=== PATIENT | female | born 1985 | race Caucasian/White ===

== ENCOUNTER 2018-03-29 02:44 | Outpatient (CLI) | payer MEDICAID ==
[2018-03-29 03:46] LABS: Bacteria,Urine 1+ /HPF (Negative); Bilirubin,Urine NEG (Negative); Blood,Urine SM (Negative); Color,Urine Yellow (Yellow); Mucus,Urine FEW /HPF; Protein,Urine <15 mg/dL mg/dL (Negative); Urobilinogen,Urine < 2.0 mg/dL (<2.0)
[2018-03-29 03:54] VITALS: BP 114/69
[2018-03-29] MEDS ORDERED: ZOFRAN ODT PO ONE (03:59)
== END 2018-03-29 04:08 | disposition home or self-care (01) ==
LOC: TRG 02:44
PROVIDERS: ATTEND Obstetrics & Gynecology
DX: O47.03 False labor before 37 completed weeks of gestation, third trimester (principal); O13.3 Gestational [pregnancy-induced] hypertension without significant proteinuria, third trimester; O99.513 Diseases of the respiratory system complicating pregnancy, third trimester; O24.419 Gestational diabetes mellitus in pregnancy, unspecified control; R06.02 Shortness of breath; Z88.5 Allergy status to narcotic agent; Z3A.37 37 weeks gestation of pregnancy
CPT/HCPCS: 59025; 81001; 82962; Q0162

== ENCOUNTER 2018-04-06 08:55 | Inpatient (IN) | payer MEDICAID ==
--- NOTE | 2018-04-06 09:35 | History and Physical Report ---
History of Present Illness Date of examination: 04/06/18 Date of admission: 04/06/18 08:55 Chief complaint: SIUP at 38 weeks and 2 days gestation with macrosomia. Undesired fertility, wants tubal ligation. History of present illness: Patient is a 32 year old , LMP 07/12/17, EDC 04/18/18 who is at 38 weeks and 2 days gestation who was admitted for primary C/section for macrosomia. She has pre-gestational diabetes and has been co-managed with [facility]. her glucose has been fairly controlled on metformin. Her most recent ultrasound showed >100th percentile growth. Patient has a history of shoulder dystocia in her last delivery. She denies any contractions, fluid leakage or bleeding. She reports good movement. tracing is CAT1. She also wants tubal ligation. Past History Past Medical History: diabetes, other (obesity) Past Surgical History: no surgical history Family/Genetic History: none Social history: no significant social history - Obstetrical History Expected Date of Delivery: 04/18/18 Actual Gestation: 38 Week(s) 2 Day(s) : 7 Para: 3 Spontaneous Abortions: 3 Number of Living Children: 3 Medications and Allergies Allergies Allergy/AdvReac Type Severity Reaction Status Date / Time oxycodone AdvReac Dizziness Verified 03/29/18 04:59 Home Medications Medication Instructions Recorded Confirmed Last Taken Type Vits96/Iron Fum/Folic 1 tab PO DAILY 04/11/13 03/29/18 03/28/18 History [ Tablet] metFORMIN [Glucophage] 500 mg PO BID 03/29/18 03/29/18 03/28/18 20:00 History Active Meds: Active Medications Citric Acid/Sodium Citrate (Bicitra) 30 ml PO ONCE ONE Stop: 04/06/18 09:04 Famotidine (Pepcid) 20 mg IV ONCE ONE Stop: 04/06/18 09:04 Cefazolin Sodium (Ancef/Sterile Water 2 Gm/20 Ml) 2 gm in 20 mls @ 80 mls/hr IV PREOP NR; Protocol Lactated Ringer's (Lactated Ringers) 1,000 mls @ 2,250 mls/hr IV PREOP ABHILASH Stop: 04/07/18 10:27 Oxytocin/Sodium Chloride (Pitocin/Ns 20 Unit/1000ml Drip) 20 units in 1,000 mls @ 0 mls/hr IV TITR ABHILASH Metoclopramide HCl (Reglan) 10 mg IV ONCE ONE Stop: 04/06/18 09:04 - Vital Signs Vital signs: Vital Signs Pulse BP 85 131/76 04/06/18 09:17 04/06/18 09:17 Temp Pulse Resp BP Pulse Ox 85 131/76 04/06/18 09:17 04/06/18 09:17 - Physical Exam Cardiovascular: Normal S1, Normal S2 Lungs: Positive: Clear to auscultation Vulva: both: normal Deep Tendon Reflex Grade: Normal +2 - Obstetrical FHR: category 1 Cervical Dilatation: 0 Cervical Effacement Percentage: 0 station: -2 Uterine Contraction Pattern: Absent Results Result Diagrams: 04/06/18 09:00 All other labs normal. Assessment and Plan - Patient Problems (1) 38 weeks gestation of Current Visit: Yes Status: Acute (2) Diabetes Current Visit: Yes Status: Acute Qualifiers: Diabetes mellitus type: type 2 (3) macrosomia Current Visit: Yes Status: Acute Plan to address problem: Patient has a history of shoulder dystocia during her last delivery. Baby was 9 lbs 3 oz. Her most recent sonogram showed the fetus to be over 4300 gms. She was counselled for delivery via C/section. Risks and benefits of the procedure were discussed with her such as infection, hemorrhage requiring blood transfusion, injury to the bowel, bladder and blood vessels. She expressed understanding, her questions were answered, she gave her informed consent. monitoring. Routine pre-op labs. Keep NPO. IV hydration.
[2018-04-06] MEDS ORDERED: PEPCID IV NR (10:00)
[2018-04-06] MEDS ORDERED: REGLAN IV NR (10:00)
[2018-04-06] MEDS ORDERED: ANCEF/STERILE WATER 2 GM/20 ML 2 GM/20 ML SYRINGE IV NR (10:00)
[2018-04-06] MEDS ORDERED: LACTATED RINGERS 1,000 ML IV SCH (10:00)
[2018-04-06] MEDS ORDERED: BICITRA PO NR (10:00)
[2018-04-06] MEDS ORDERED: PITOCin/NS 20 UNIT/1000ML DRIP 20 UNITS/1,000 ML BAG IV SCH ×2 (10:00→14:00)
[2018-04-06 10:07] LABS: Basophils # (Auto) 0.1 K/mm3 (0.0-0.1); Basophils % (Auto) 0.9 % (0.0-1.8); Eosinophils # (Auto) 0.1 K/mm3 (0.0-0.4); Hematocrit 33.4 % (30.3-42.9); Hemoglobin 11.1 gm/dl (10.1-14.3); Lymphocytes # (Auto) 2.3 K/mm3 (1.2-5.4); Lymphocytes % (Auto) 30.2 % (13.4-35.0); Mean Corpuscular HGB Conc 33 % (30-34); Mean Corpuscular Volume 85 fl (79-97); Monocytes # (Auto) 0.6 K/mm3 (0.0-0.8); Monocytes % (Auto) 8.2 % (0.0-7.3); Platelet Count 218 K/mm3 (140-440); Red Blood Count 3.94 M/mm3 (3.65-5.03); Red Cell Distribution Width 13.9 % (13.2-15.2)
--- NOTE | 2018-04-06 10:10 | Anesthesia Consultation ---
Anesthesia Consult and Med Hx Date of service: 04/06/18 - Airway Anesthetic Teeth Evaluation: Good, Chipped ROM Head & Neck: Adequate Mental/Hyoid Distance: Adequate Mallampati Class: Class III Intubation Access Assessment: Possibly Difficult - Pre-Operative Health Status ASA Pre-Surgery Classification: ASA2 Proposed Anesthetic Plan: Epidural, Spinal - Pulmonary Hx Asthma: No COPD: No Hx Pneumonia: No - Cardiovascular System Hx Hypertension: No - Central Nervous System Hx Seizures: No Hx Psychiatric Problems: No - Endocrine Hx Renal Disease: No Hx End Stage Renal Disease: No Hx Non-Insulin Dependent Diabetes: Yes (gestational DM) Hx Hypothyroidism: No Hx Hyperthyroidism: No - Hematic Hx Anemia: No Hx Sickle Cell Disease: No - Other Systems Hx Alcohol Use: No
--- NOTE | 2018-04-06 10:11 | Anesthesia Day of Surgery ---
Anesthesia Day of Surgery - Day of Surgery Patient Examined: Yes Patient H&P Reviewed: Yes Patient is NPO: Yes
[2018-04-06] MEDS ORDERED: ASTRAMORPH PF 10MG/10ML ONE (10:21)
[2018-04-06] MEDS ORDERED: NARCAN 0.4 MG/1 ML IV PRN ×3 (10:30→13:29)
[2018-04-06] MEDS ORDERED: ZOFRAN IV PRN ×3 (10:30→13:29)
[2018-04-06] MEDS ORDERED: BENADRYL IV PRN (10:30)
[2018-04-06] MEDS ORDERED: SODIUM CHLORIDE FLUSH SYRINGE 10 ML IV PRN (11:00)
[2018-04-06] MEDS ORDERED: NACL 0.9% IR ONE (11:47)
[2018-04-06] MEDS ORDERED: WATER FOR IRRIG STERILE IR ONE (11:47)
[2018-04-06] MEDS ORDERED: METHERGINE IM ONE (12:05)
[2018-04-06] MEDS ORDERED: CYTOTEC ONE (12:15)
[2018-04-06] MEDS ORDERED: HEMABATE IM ONE (12:16)
[2018-04-06] MEDS ORDERED: MILK OF MAGNESIA PO PRN (13:09)
[2018-04-06] MEDS ORDERED: SENOKOT PO PRN (13:09)
[2018-04-06] MEDS ORDERED: TORADOL IV PRN (13:09)
[2018-04-06] MEDS ORDERED: TUCKS PAD TP PRN (13:09)
[2018-04-06] MEDS ORDERED: TYLENOL PO PRN (13:09)
[2018-04-06] MEDS ORDERED: MORPHINE IV PRN ×2 (13:09)
[2018-04-06] MEDS ORDERED: ANUCORT-HC PR PRN (13:09)
[2018-04-06] MEDS ORDERED: LANSINOH TP PRN (13:09)
[2018-04-06] MEDS ORDERED: ZOFRAN ONE (13:13)
[2018-04-06] MEDS ORDERED: NEO SYNEPHRINE ONE (13:13)
[2018-04-06] MEDS ORDERED: TORADOL IV ONE (13:28)
[2018-04-06] MEDS ORDERED: PHENERGAN PR PRN (13:29)
[2018-04-06] MEDS ORDERED: PHENERGAN PO PRN (13:29)
[2018-04-06] MEDS ORDERED: DILAUDID IV PRN (13:29)
[2018-04-06] MEDS ORDERED: SODIUM CHLORIDE FLUSH SYRINGE 10 ML IV NR ×2 (14:00)
--- NOTE | 2018-04-06 14:10 | Operative Report ---
Operative Report Operative Report: Preoperative diagnosis 1. SIUP at 38 weeks and 3 days gestation not in labor. 2. Pre-gestational diabetes type-2. 3. macrosomia. 4. Morbid obesity. 5. Unwanted fertility. Postoperative diagnosis: Same. Procedure: 1. Primary low-transverse section. 2. Bilateral tubal ligation via Pemoroy method. Surgeon: Dr. Duarte Metal Furniture Repairer: none Anesthesia: Spinal. IVF: RL 2300 cc. EBL: 700 cc Urine: 250 cc clear Complications: Intraoperative uterine atony responsive to IV Pitocin, IM mether gine and IM hemabate. Intraoperative findings: 1. A male found in an HUMBERTO position, delivered at 12 PM, Apgars 8 at 1 minute and 9 at 5 minutes, weight 10 lbs. 1oz. 2. Normal fallopian tubes and ovaries bilaterally. Procedure details: Risks, benefits, and alternatives of the procedure were discussed in detail with the patient which included but not limited to the risk of infection, hemorrhage requiring blood transfusion, injury to the bowel or bladder and blood vessels, failure of the tubal ligation to prevent which can result in unwanted in the future. The patient expressed understanding, her questions were answered, and she gave informed consent. The patient was taken to the operating room with an IV fluid infusing Ringers lactate. In the operating room, she was placed in a sitting position and given spinal anesthesia. Then, she was placed in a dorsal supine position with a leftward tilt. Ventura catheter and Venodyne boots were placed. The abdomen was washed and she was prepared and draped in usual sterile fashion. After confirming adequate epidural anesthesia, the Pfannenstiel skin incision was made in the lower abdomen about 2 cm above the pubic symphysis using the scalpel. This incision was carried down to the underlying fascia using the Bovie. The fascia was opened bilaterally in a curvilinear fashion using the Bovie. 2 straight Kocker clamps were used to grasp the upper edge of the fascia from which the underlying rectus abdominis muscles was dissected off using the Bovie. A similar procedure was done with the lower edge of the fascia to dissect the underlying rectus abdominis muscle. The muscle was bluntly from the midline by pulling. The parietal peritoneum was grasped with 2 hemostat clamps and entered sharply using Metzenbaum scissors. A quick survey of the anatomy revealed a gravid uterus, normal fallopian tubes and ovaries bilaterally. A bladder flap was created. Richard'O retractor was placed in the incision for proper visualization. A low transverse incision was made in the lower uterine segment using the scalpel and extended bilaterally in a curvilinear fashion using bandage scissors. There was copious amount of clear amniotic fluids. The was found in an HUMBERTO position, the head was delivered atraumatically followed by the delivery of the shoulders and the rest of the body at 12 PM. The cord was clamped 2 and cut and the was handed off to the waiting hr shared services consultant. The infant was a male, Apgars were 8 at 1 minute and 9 at 5 minutes, weight was 10 pounds and 1 ounce. Cord blood was collected. The placenta was delivered manually and it was complete with a three-vessel cord. The uterine cavity was cleaned of clots and debris using dry lap sponges. The uterine incision was repaired in a running locked fashion using 0 Vicryl sutures. A second layer of imbrication was placed. The gutters were cleaned of clots and debris using dry lap sponges. Attention was turned to the right fallopian tube which was grasped with Ulman clamps and a 2 cm segment was resected. A similar procedure was done with the left tube and a 2-cm segment was resected. Both segments were sent to pathology. After confirming adequate hemostasis, the instruments were removed from the abdominal cavity. The rectus muscle was reapproximated in an interrupted fashion using 0 Vicryl sutures. The fascia was closed in a running fashion using 0 Vicryl sutures. The subcutaneous adipose tissues were closed with chromic. The skin was closed with shawanda. Sterile dressing was placed. The counts of laps, needles, sponges, and instruments were correct 2. The patient tolerated the procedure well, she was taken to the recovery room in a stable condition.
[2018-04-06] MEDS ORDERED: D5LR 1,000 ML IV SCH (16:15)
[2018-04-06] MEDS ORDERED: REGLAN IV ONE (17:00)
[2018-04-06] MEDS ORDERED: BENADRYL IV ONE (17:00)
[2018-04-06] MEDS: LACTATED RINGERS 1,000 ML IV SCH (20:11)
[2018-04-07 01:06] LABS: Hematocrit 25.7 % (30.3-42.9); Hemoglobin 8.6 gm/dl (10.1-14.3)
[2018-04-07] MEDS: LACTATED RINGERS 1,000 ML IV SCH (05:07)
[2018-04-07] MEDS: TORADOL IV PRN ×2 (05:09→13:30)
--- NOTE | 2018-04-07 06:56 | Post Anesthesia Evaluation ---
- Post Anesthesia Evaluation Patient Participated: Yes Airway Patent: Yes Stable Respiratory Function: Yes Nausea/Vomiting: No Temp > 96.8F: Yes Pain Manageable: Yes Adequeate Hydration: Yes Anesthesia Complications: No Block Receding Appropriately: Yes Patient on Ventilator: No
[2018-04-07] MEDS: PERCOCET 5/325 PO PRN ×2 (09:15→18:17)
[2018-04-07] MEDS: FEOSOL PO SCH (09:15)
[2018-04-07] MEDS: PRENATAL VITAMIN PO SCH (09:16)
--- NOTE | 2018-04-07 10:26 | Progress Note ---
Assessment and Plan A: POD #1 Asymptomatic anemia Stable P: Follow Routine PostOp Orders Advance Diet with +Flatus Encourage increased ambulation Abdominal binder Subjective - Subjective Date of service: 04/07/18 Principal diagnosis: POD#1 s/p Primary c/s wl BTL Patient reports: appetite normal, voiding normally, pain well controlled, flatus, ambulating normally, no bowel movement [place]: doing well, bottle feeding Objective - Vital Signs Latest vital signs: Vital Signs Temp Pulse Resp BP BP Pulse Ox 04/07/18 08:38 97.9 F 90 20 103/41 04/07/18 00:00 98.2 F 98 H 20 101/51 99 04/06/18 20:05 98.6 F 99 H 20 117/68 98 04/06/18 16:37 97.3 F L 56 L 20 115/62 115/62 94 04/06/18 15:02 97.4 F L 65 16 139/75 04/06/18 14:45 98.2 F 72 15 124/69 100 04/06/18 14:30 74 18 122/68 100 04/06/18 14:15 66 16 120/64 100 04/06/18 14:00 65 16 120/66 100 04/06/18 13:45 66 22 124/70 100 04/06/18 13:40 67 22 123/70 100 04/06/18 13:35 70 15 124/88 100 04/06/18 13:30 64 16 124/75 100 04/06/18 13:25 97.8 F 69 23 123/73 100 Intake and Output 04/06/18 04/07/18 04/07/18 23:59 07:59 15:59 Intake Total 240 1240 120 Output Total 1350 400 200 Balance -1110 840 -80 Intake: IV 1000 Lactated Ringers 1,000 ml 1000 @ 125 mls/hr IV DIRECT ABHILASH Rx#:[id number] Oral 240 240 120 Output: Urine 1275 400 200 Indwelling Catheter 1275 400 Void 200 Emesis 75 Other: Total, Intake Amount 240 240 120 Total, Output Amount 800 400 200 # Voids Void 1 - Exam Breasts: Present: normal Cardiovascular: Present: Regular rate, Normal S1, Normal S2, No murmurs Lungs: Present: Clear to auscultation, Normal air movement Abdomen: Present: normal appearance, soft, tenderness (as expected post-op), normal bowel sounds. Absent: distention Vulva: both: normal Uterus: Present: firm, fundal height at umbilicus Extremities: Present: normal Deep Tendon Reflex Grade: Normal +2 Incision: Present: normal (LTI, clsoed with shawanda, pressure dressing CDI), dry, intact - Labs Labs: Abnormal lab results 04/07/18 Range/Units 00:52 Hgb 8.6 L (10.1-14.3) gm/dl Hct 25.7 L D (30.3-42.9) %
[2018-04-07] MEDS: IBUPROFEN PO PRN (23:30)
[2018-04-08] MEDS: PERCOCET 5/325 PO PRN ×3 (08:21→20:51)
--- NOTE | 2018-04-08 11:45 | Progress Note ---
Assessment and Plan A: /postop day 2 S/P primary low transverse section with BTL. Anemia. P: Continue ambulation and iron supplementation. Anticipate discharge tomorrow. Subjective - Subjective Date of service: 04/08/18 Principal diagnosis: POD#2 s/p Primary c/s wl BTL Interval history: /postop day 2 S/P primary LTCS with BTL. Patient is voiding without difficulty. Ambulating well. Tolerating diet without nausea or vomiting. Passing gas. Patient reports small amount of lochia. She denies headache, chest pain, cough, shortness of breath, dizziness, abdominal pain, leg pain, or heavy bleeding. Patient reports: appetite normal, voiding normally, pain well controlled, flatus, ambulating normally, no dizzy ambulation, no nauseated : doing well Objective - Vital Signs Latest vital signs: Vital Signs Temp Pulse Resp BP BP Pulse Ox 04/08/18 07:40 98.3 F 80 20 112/59 97 04/08/18 06:10 98 H 99 04/07/18 23:44 99.3 F 113 H 16 110/55 97 04/07/18 16:05 97.6 F 102 H 18 103/53 04/07/18 13:29 98 F 72 18 106/66 Intake and Output 04/07/18 04/08/18 04/08/18 23:59 07:59 15:59 Intake Total 560 240 Output Total 400 Balance 160 240 Intake: Oral 320 Intake, Free Water 240 240 Output: Urine 400 Void 400 Other: Total, Intake Amount 320 Total, Output Amount 400 # Voids Void 3 3 - Exam Cardiovascular: Present: Regular rate, Normal S1, Normal S2 Lungs: Present: Clear to auscultation Abdomen: Present: normal appearance, soft, normal bowel sounds. Absent: distention, tenderness, guarding, rigidity Uterus: Present: normal, firm, fundal height below umbilicus. Absent: bogginess, tenderness Extremities: Present: normal, edema (mild pedal edema bilaterally). Absent: tenderness Incision: Present: normal, dry, intact
[2018-04-08] MEDS: PRENATAL VITAMIN PO SCH (13:00)
[2018-04-08] MEDS: IBUPROFEN PO PRN ×2 (13:00→19:09)
[2018-04-08 13:08] LABS: Hematocrit 22.7 % (30.3-42.9); Hemoglobin 7.7 gm/dl (10.1-14.3)
[2018-04-09] MEDS: IBUPROFEN PO PRN ×3 (00:34→12:07)
[2018-04-09 08:59] VITALS: BP 125/50
--- NOTE | 2018-04-09 10:45 | Progress Note ---
Assessment and Plan A: /postop day 3. Anemia (asymptomatic). P: Discharge patient home today. discharge instructions and warning signs discussed in detail with patient. Advised patient re: activity restrictions and care of incision. Advised patient to avoid driving, stair climbing, tub baths (may take showers), intercourse, lifting and heavy housework. Advised patient to continue taking her vitamin daily and her iron supplements two to three times per day at home. Advised patient she must have an incision check and staple removal in 1 week at the office; advised her to call [facility] tomorrow and schedule an appointment to come to the office in 1 week for an incision check. Advised patient to return promptly if any problems. Discussed iron rich foods with patient. Patient voiced understanding of all instructions. Subjective - Subjective Date of service: 04/09/18 Principal diagnosis: POD#3 s/p Primary c/s wl BTL Interval history: /postop day 3 S/P primary LTCS with BTL. Patient desires discharge home today. Patient is voiding without difficulty. Ambulating well. Tolerating regular diet without nausea or vomiting. Passing gas. Patient reports scant amount of lochia. Patient denies headache, visual disturbance, dizziness, chest pain, shortness of breath, cough, nausea or vomiting, abdominal pain, leg pain, heavy vaginal bleeding, symptoms of depression, or any other problems. Patient reports: appetite normal, voiding normally, pain well controlled, flatus, ambulating normally, no dizzy ambulation, no nauseated [place]: doing well Objective - Vital Signs Latest vital signs: Vital Signs Temp Pulse Resp BP BP Pulse Ox 04/09/18 08:57 98.0 F 55 L 16 125/50 96 04/09/18 01:45 98.5 F 93 H 18 127/69 96 04/08/18 16:54 98 H 20 118/66 97 Intake and Output 04/08/18 04/09/18 04/09/18 23:59 07:59 15:59 Intake Total 240 360 236 Balance 240 360 236 Intake: Oral 240 236 Intake, Free Water 360 Other: Total, Intake Amount 120 236 # Voids Void 1 2 1 - Exam Cardiovascular: Present: Regular rate, Normal S1, Normal S2, No murmurs Lungs: Present: Clear to auscultation Abdomen: Present: normal appearance, soft, normal bowel sounds. Absent: distention, tenderness, guarding, rigidity Uterus: Present: normal, firm, fundal height below umbilicus. Absent: bogginess, tenderness Extremities: Present: normal, edema (pedal edema bilaterally). Absent: tenderness Incision: Present: normal, dry, intact - Labs Labs: Abnormal lab results 04/08/18 Range/Units 12:58 Hgb 7.7 L (10.1-14.3) gm/dl Hct 22.7 L (30.3-42.9) %
--- NOTE | 2018-04-09 10:52 | Discharge Summary ---
Providers - Providers Date of Admission: 04/06/18 08:55 Date of discharge: 04/09/18 Attending physician: EH MENJIVAR MD None Primary care physician: EH MENJIVAR MD Hospitalization Reason for admission: section Delivery: Procedure: primary low transverse Incision: normal, dry, intact Other procedures: tubal ligation complications: none Discharge diagnosis: IUP at term delivered [place] baby: male Pertinent studies: Labs Hospital course: Normal hospital course. Condition at discharge: Good Disposition: DC-01 TO HOME OR SELFCARE - Discharge Diagnoses (1) Term delivered Status: Acute Plan - Discharge Medications Prescriptions: HYDROmorphone [Dilaudid] 2 mg PO Q6HR #14 tablet Ibuprofen [Motrin] 800 mg PO Q8HR PRN #30 tablet PRN Reason: Pain, Moderate (4-6) - Provider Discharge Summary Activity: routine, no sex for 6 weeks, no heavy lifting 4 weeks, no strenuous exercise Diet: routine Instructions: routine Additional instructions: Continue taking your vitamin daily at home. Continue taking your iron supplements two to three times per day at home. Call your doctor immediately for: * Fever > 100.5 * Heavy vaginal bleeding ( >1 pad per hour) * Severe persistent headache * Shortness of breath * Reddened, hot, painful area to leg or breast * Drainage or odor from incision. * Keep incision clean and dry at all times and follow doctor's instructions regarding bathing/showering - Follow up plan Follow up: EH MENJIVAR MD [Primary Care Provider] - 7 Days
[2018-04-09] MEDS: FEOSOL PO SCH (12:07)
[2018-04-09] MEDS: PRENATAL VITAMIN PO SCH (12:08)
== END 2018-04-09 12:30 | disposition home or self-care (01) | DRG 766 ==
LOC: APU 08:55 → OB 15:09
PROVIDERS: ADMIT Obstetrics & Gynecology; ATTEND Obstetrics & Gynecology
PROC: 10D00Z1 Extraction of Products of Conception, Low, Open Approach (ICD-10-PCS; principal; 2018-04-06)
PROC: 0UB70ZZ Excision of Bilateral Fallopian Tubes, Open Approach (ICD-10-PCS; 2018-04-06)
DX: O36.63X0 Maternal care for excessive fetal growth, third trimester, not applicable or unspecified (principal); O24.429 Gestational diabetes mellitus in childbirth, unspecified control; O99.214 Obesity complicating childbirth; E66.01 Morbid (severe) obesity due to excess calories; O90.81 Anemia of the puerperium; D64.9 Anemia, unspecified; O62.2 Other uterine inertia; Z3A.38 38 weeks gestation of pregnancy; Z37.0 Single live birth
CPT/HCPCS: 36415; 82962; 85014; 85018; 85025; 86850; 86900; 86901; 88302; G0378; A6250; J1200; J1885; J2210; J2274; J2370; J2405; J2590; J2765; J7120; J7121; Q0169